=== PATIENT | female | born 1960 | race Caucasian/White ===

== ENCOUNTER → 2018-03-07 07:30 | Outpatient (RCR) | payer BC, SELFPAY ==
--- NOTE | 2016-12-11 14:21 | PTTR_ITS ---
DATE: 12/11/16 OBJECTIVE: The pt was casted for accommodative type orthotics. Will contact the pt when the devices arrive. Direct treatment time: Total treatment time: DLW/fw
--- NOTE | 2017-06-20 14:37 | PTIDS_ITS ---
DATE: 06/20/17 REFERRING PROVIDER: Amber Spears MD DIAGNOSIS: L hip pain Patient did not return for a follow up appointment(s). Patient called to cancel remaining appointment(s). Reason: Return to physician recommended. ___x__ Patient had achieved an improvement in condition up to their prior level of function. Patient was instructed in a customized home exercise program to continue independently at home. The patient was given the option to call and schedule an appointment any time within a 3-week period if they experience a return of symptoms. Patient did not schedule follow up within this time frame. COMMENTS: ___x__ Discharge from PT at this time. ___[]__ Medicare: Unable to assign G-Codes due to the lack of a formal follow up visit. Patient did not schedule further visits after their last attended appointment and therefore a final assessment could not be performed.
== END ==
LOC: PT 11-10 07:30
PROVIDERS: Referring Provider Family Medicine; Visit Provider Family Medicine
DX: R69 Illness, unspecified (principal)

== ENCOUNTER 2018-11-10 09:39 | Outpatient (REF) | payer BC, SELFPAY ==
--- NOTE | 2018-11-10 09:00 | PAPFT_PTH ---
PATIENT: Laurie Anne LOC: [facility] U#:[id number] AGE/SX: 57/F ROOM: RE11/10/[address]: BLANE Velazquez : 1960 BED: DIS: 11/10/2018 SPEC #: [id number] RECD: 11/10/18 12:52 STATUS: RAJIV REMilady #: [id number] BUFFY: 11/10/18 09:[address]: Margaret Bashir DEPT: [facility] Cytology RECD BY: Amalia Simms ENTERED: 11/10/18 12:52 SP TYPE: PAPFT OTHR DR: Tita Cunha Tissues: 1 - CX/ENDOCX FOR PAP SMEARS Procedures: PAP THIN PREP/UVM Screening HPV DNA PROBE Comments: [id number]
== END 2018-11-10 09:59 ==
LOC: LBN 09:39
PROVIDERS: Visit Provider Nurse Practitioner Family
DX: Z12.4 Encounter for screening for malignant neoplasm of cervix (principal); Z11.51 Encounter for screening for human papillomavirus (HPV)
CPT/HCPCS: 88142; 87624

== ENCOUNTER 2018-11-17 00:19 | Outpatient (CLI) | payer BC, SELFPAY ==
--- NOTE | 2018-11-17 10:30 | DI.MAMMO_ITS ---
SYMPTOM/DIAGNOSIS: SCREENING MAMMOGRAMS: Mammograms were interpreted according to the usual protocol including computer analysis with CAD system, tomosynthesis and C view imaging. Comparison is made with exams from [id number]. The breasts are composed of fatty density tissue, breast density, Category A. No suspicious masses or suspicious microcalcifications are seen. There has been no significant change. IMPRESSION: Category 1, negative mammogram. Yearly screening mammography is recommended. [facility] ASSESSMENT OF FINDINGS: Negative. Category 1. Patient will receive a letter notifying them of these results. BI-RAD category A. The breasts are almost entirely fatty.
== END 2018-11-17 00:39 ==
PROVIDERS: Visit Provider Nurse Practitioner Family
DX: Z12.31 Encounter for screening mammogram for malignant neoplasm of breast (principal)
CPT/HCPCS: 77063; 77067

== ENCOUNTER 2020-01-21 01:29 | Outpatient (CLI) | payer BC, SELFPAY ==
--- NOTE | 2020-01-21 07:30 | DI.MAMMO_ITS ---
EXAM: MAMMO SCREENING CLINICAL HISTORY: screening,Z12.39 TECHNIQUE: Mammograms were interpreted according to the usual protocol including computer analysis w [employer] CAD system, tomosynthesis and C-view imaging. COMPARISON: FINDINGS: The breasts are of moderate density with fairly symmetrical distribution of fibroglandular tissue. N o dominant mass or clumped microcalcification is identified in either breast. The current examinatio n is compared with previous examinations including November 2018 and there is an area of focal asymmetric density projected in the central portion of the left breast on MLO view only which is more prominent than on prior examinations. Possibility of a new mass is not excluded, additional evaluation with sp ot compression views of the left breast including MLO spot compression view recommended. No other significant change seen. IMPRESSION: Additional mammographic views of the left breast requested as described above. Breast ultrasound may be indicated as well depending on the results of the additional mammographic views. BI-RADS Category 0 - Assessment Incomplete: Need additional imaging evaluation Breast Density - Category B - Scattered areas of fibroglandular density
== END 2020-01-21 01:49 ==
PROVIDERS: Visit Provider Nurse Practitioner Family
DX: Z12.31 Encounter for screening mammogram for malignant neoplasm of breast (principal); R92.8 Other abnormal and inconclusive findings on diagnostic imaging of breast
CPT/HCPCS: 77063; 77067

== ENCOUNTER 2020-01-27 02:41 | Outpatient (CLI) | payer BC, SELFPAY ==
--- NOTE | 2020-01-27 | DI.US_ITS ---
EXAM: MG MAMMO SCREEN CALL BACK UNI and U/S breast LT limited CLINICAL HISTORY: F/U MAMMO, ? PROMINENCE OF ASYMMETRIC DENSITY., ? NEW MASS. TECHNIQUE: Craniocaudal and mediolateral oblique Full Field Digital Mammography views of the left br east with Computer Aided Diagnosis followed by Tomosynthesis and left breast ultrasound. COMPARISON: Priors available for comparison. FINDINGS: Mammography/Tomosynthesis: Masses/Architectural Distortion: The asymmetric density does not persist on additional views. Microcalcifictions: No suspicious pleomorphic-type are seen. Skin Thickening/Nipple Retraction: None. Left breast US: Echotexture: Normal appearance of the glandular tissue. Shadowing: No suspicious foci. Cyst: None. Solid lesions: None seen. Ductal dilation: None. IMPRESSION: 1. No evidence of malignancy is noted. 2. A follow-up examination in 6 months is recommended for re-evaluation. 3. The findings were discussed with the patient on the date of the examination. BI-RADS Cat 3 - 6 month - Probably Benign Finding: Recommend follow-up mammography in 6 months Breast Density - Category B - Scattered areas of fibroglandular density A negative radiographic report should not delay biopsy if a dominant or clinically suspicious mass is present. Up to ten percent of cancers are not identified on mammography. A negative report may reinforce clinical impression. Adenosis and dense breasts may obscure an underlying neoplasm. False positive reports average 6 to 10%. Patient will receive a letter notifying them of these results.
== END 2020-01-27 03:01 ==
PROVIDERS: Visit Provider Nurse Practitioner Family
DX: Z12.39 Encounter for other screening for malignant neoplasm of breast (principal); R92.8 Other abnormal and inconclusive findings on diagnostic imaging of breast
CPT/HCPCS: 76642; 77063; 77067

== ENCOUNTER 2020-08-02 02:14 | Outpatient (CLI) | payer BC, SELFPAY ==
--- NOTE | 2020-08-02 06:45 | DI.MAMMO_ITS ---
EXAM: MAMMO DIAGNOSTIC UNI CLINICAL HISTORY: 6 mo f/u L Mammo - f/u to abnormal,r92.8 TECHNIQUE: Mammograms were interpreted according to the usual protocol including computer analysis w [employer] CAD system, tomosynthesis and C-view imaging. COMPARISON: MG MAMMO SCREEN CALL BACK UNI from 01/27/2020 US US BREAST LT LIMITED from 01/27/2020 FINDINGS: The breasts are composed of scattered fibroglandular densities, Breast Density category B. No suspicious masses or suspicious microcalcifications are seen. No skin thickening or abnormal axillary lymph nodes are seen. The previously questioned asymmetric density is not seen on today's exam. IMPRESSION: BI-RADS Category 1, Negative mammogram Yearly screening mammography is recommended. Breast Density - Category B, scattered fibroglandular densities. A negative radiographic report should not delay biopsy if a dominant or clinically suspicious mass is present. Up to ten percent of cancers are not identified on mammography. A negative report may reinforce clinical impression. Adenosis and dense breasts may obscure an underlying neoplasm. False positive reports average 6 to 10%. Patient will receive a letter notifying them of these results.
== END 2020-08-02 02:34 ==
PROVIDERS: Visit Provider Nurse Practitioner Family
DX: R92.8 Other abnormal and inconclusive findings on diagnostic imaging of breast (principal)
CPT/HCPCS: 77061; 77065; G0279

== ENCOUNTER 2020-12-05 08:53 | Emergency (ER) | payer BC, SELFPAY ==
[2020-12-05 08:56] VITALS: BP 119/55; PULSE 70; TEMP 36.5; O2SAT 97
--- NOTE | 2020-12-05 08:57 | W.ED.GENAD ---
Discharge Plan Disposition Patient Disposition: HOME Condition: Stable Discharge Details Clinical Impression: Oral candidiasis Primary Care Provider: Tita Cunha ED Provider: Leigh Blair Home Meds and New Rx's Prescriptions: New nystatin 100,000 unit/mL suspension 5 ml PO QID 10 Days Qty: 200 RF: 0 Discharge Instructions Instructions: Oral Candidiasis (ED) Additional Instructions: You appear to have a fungal infection in your throat. Take the nystatin as directed. Alternate tylenol and motrin as needed and directed for pain. Call your primary care doctor's office tomorrow to schedule follow-up appointment for reevaluation in the next week. If your symptoms do not improve or worsen, steroids and/or antibiotics may be indicated. Return immediately to the emergency department if you develop any worsening or new concerning symptoms. Discharge Data Discharge Date/Time-TO BE ENTERED AT DEPARTURE: 12/05/20 09:56 Discharge Physician: Leigh Blair Medical Decision Making 60-year-old female presents with left-sided sore throat and left ear pain for the past 6 days. Denies fever, neck pain. She is afebrile and appears nontoxic. Left side of posterior oropharynx appears erythematous, edematous with white patches along with white patches to left side of tongue. No exudates or peritonsillar abscess. Left TM mildly dull with minimal yellowing and erythema. No signs of otitis externa. Suspect most likely oral candidiasis, although unusual only on left side of throat. Suspect this is causing the left ear findings and do not suspect a primary otitis media. Rapid strep negative. Does not appear consistent with strep pharyngitis or mononucleosis. She denies any recent oral steroids, antibiotics and no other risk for immunocompromise state. [facility] is closed today for the holiday. A prescription for nystatin sent to [facility] in [place]. Patient advised to follow-up with her primary care doctor this week for reevaluation. We will hold on oral steroids at this time for risk of worsening fungal infection. Usual and customary return precautions given prior to discharge. Medical Records Medical records reviewed: Yes I reviewed the patient's medical records. HPI General Mode of arrival: ambulatory. Date/Time Provider Initiated Documentation: 12/05/20 08:53. Limitations to Documentation: no limitations. Information obtained by: patient. HPI Narrative: Patient is a 60-year-old female presents to the ED with a complaint of a metallic taste in her mouth with left-sided sore throat and left ear pain for the past 6 days. Patient states her symptoms started with the metallic taste and then progressed to pain in the left side of her throat and neck with swallowing that radiates to her left ear. She states she saw her primary care doctor several days ago for this and was told that her eustachian tubes were plugged and was advised to gargle with salt water but she denies any improvement with this. She states she has been able to eat and drink but with irritation with swallowing. She denies any fever, cough, shortness of breath, headache or neck pain. She denies any recent antibiotic or steroid use. Related Data Home Medications Medication Instructions Recorded Confirmed nystatin 5 ml PO QID 10 Days #200 ml 12/05/20 Previous Rx's Medication Instructions Recorded nystatin 5 ml PO QID 10 Days #200 ml 12/05/20 Allergies Allergy/AdvReac Type Severity Reaction Status Date / Time No Known Allergies Allergy Verified 12/05/20 09:03 Review of Systems All systems reviewed & are unremarkable except as noted in HPI and below Constitutional Constitutional: Reports as per HPI, Denies chills and Denies fever(s) Eyes Eyes: Denies blurry vision ENT Ears, Nose, Mouth, and Throat: Denies dizziness, Reports otalgia, Reports sore throat and Denies throat swelling Cardiovascular Cardiovascular: Denies chest pain and Denies dyspnea Respiratory Respiratory: Denies cough and Denies dyspnea Gastrointestinal Gastrointestinal: Denies abdominal pain, Denies diarrhea and Denies vomiting Genitourinary Genitourinary: Denies hematuria and Denies dysuria Musculoskeletal Musculoskeletal: Denies back pain and Denies numbness Integumentary/Breasts Skin/Breast: Denies lesions and Denies rash Neurologic Neurologic: Denies dizziness, Denies localized weakness and Denies numbness Allergic/Immunologic Allergic/Immunologic: Denies throat swelling [facility] Medical History (Updated 12/05/20 @ 09:40 by Leigh Blair DO) Obesity Surgical History (Updated 04/23/18 @ 14:35 by [employer] DC) section Colonoscopy - MAC (02/18/17) Family History Father Peripheral neuropathy Sister Peripheral neuropathy Social History (Updated 11/10/18 @ 08:44 by Margaret Bashir NP) Smoking/Tobacco Use Status: Never Smoking risk assessment performed?: Yes Alcohol Intake: never Drug use: Never Substance use type: does not use current occupation: Periodontal Assistant Do you feel safe at home: Yes Do you feel safe in your relationship?: Yes History History 3 Para 2 Hx # Term Pregnancies Multiple births Hx # Pregnancies Ectopic pregnancies AB induced Hx Number of Living Children AB spontaneous Exam Const General: cooperative, healthy appearing and no acute distress HENMT Head: normal to inspection Ears: hearing grossly normal bilaterally, external ears normal, EAC's normal, mastoids normal bilaterally and TM abnormal dull on the left and with fluid behind the TM on the left (minimal yellowish color) General nose exam: external nose normal Face and sinus: normal facial exam Mouth: lip normal, moist mucous membranes, no drooling, tongue abnormal with lesion noted patch (white patches noted to L posterior and lateral tongue) and no trismus Throat: uvula midline, no peritonsillar masses and posterior oropharynx abnormal (white patches, erythema, edema noted to L side) Eyes General: appearance normal, both eyes and all related structures EOM: EOM intact bilaterally Neck Neck: normal visual inspection and No submandibular swelling Lymphatic: no lymphadenopathy noted Resp Effort & Inspection: normal respiratory effort and able to speak in complete sentences Cardio Rate: regular rate Skin General skin exam: no rashes or lesions noted Neuro General: patient alert, patient awake and patient oriented x3 Cognition: normal cognition Speech: speech normal Motor: muscle tone normal throughout Sensory Exam: no sensory deficits noted Extrem General: normal to inspection and full ROM Psych Appearance: grossly normal Mental Status: mental status grossly normal Speech and Movement: speech and movement normal Affect: normal affect
== END 2020-12-05 09:56 | disposition home or self-care (01) ==
PROVIDERS: Emergency Provider Physician Assistant
DX: B37.0 Candidal stomatitis (principal); H92.02 Otalgia, left ear
CPT/HCPCS: 87880; 99283; 87081

== ENCOUNTER 2021-01-24 01:49 | Outpatient (CLI) | payer BC, SELFPAY ==
--- NOTE | 2021-01-24 06:45 | DI.MAMMO_ITS ---
Exam(s) MAMMO SCREENING EXAM: MAMMO SCREENING CLINICAL HISTORY: screening,z12.39 TECHNIQUE: Mammograms were interpreted according to the usual protocol including computer analysis w [email or web address] CAD system, tomosynthesis and C-view imaging. COMPARISON: 2011 through 2020 FINDINGS: The breasts are composed of scattered fibroglandular densities, Breast Density category B. No suspicious masses or suspicious microcalcifications are seen. No skin thickening or abnormal axillary lymph nodes are seen. There has been no significant change from prior exams. IMPRESSION: BI-RADS Category 1, Negative mammogram Yearly screening mammography is recommended. Breast Density - Category B, scattered fibroglandular densities. A negative radiographic report should not delay biopsy if a dominant or clinically suspicious mass is present. Up to ten percent of cancers are not identified on mammography. A negative report may reinforce clinical impression. Adenosis and dense breasts may obscure an underlying neoplasm. False positive reports average 6 to 10%. Patient will receive a letter notifying them of these results.
== END 2021-01-24 02:09 ==
PROVIDERS: Visit Provider Nurse Practitioner Family
DX: Z12.31 Encounter for screening mammogram for malignant neoplasm of breast (principal); R92.8 Other abnormal and inconclusive findings on diagnostic imaging of breast
CPT/HCPCS: 77063; 77067

== ENCOUNTER 2022-01-22 15:41 | Outpatient (REF) | payer BC, SELFPAY ==
--- NOTE | 2022-01-22 15:30 | PAPFT_PTH ---
PATIENT: Laurie Anne LOC: [facility] U#:[id number] AGE/SX: 61/F ROOM: RE01/22/[address]: BLANE Velazquez : 1960 BED: DIS: 01/22/2022 SPEC #: [id number] RECD: 01/22/22 18:53 STATUS: RAJIV REQ #: [id number] BUFFY: 01/22/22 15:[address]: Margaret Bashir DEPT: [facility] Cytology RECD BY: Amalia Simms ENTERED: 01/22/22 18:53 SP TYPE: PAPFT OTHR DR: Amber Spears Tissues: 1 - CX/ENDOCX FOR PAP SMEARS Procedures: PAP THIN PREP/UVM Screening HPV DNA PROBE Comments: [id number]
== END 2022-01-22 15:42 | disposition home or self-care (01) ==
LOC: LBN 15:41
PROVIDERS: PCP Family Medicine; Visit Provider Nurse Practitioner Family
DX: Z12.4 Encounter for screening for malignant neoplasm of cervix (principal); Z11.51 Encounter for screening for human papillomavirus (HPV)
CPT/HCPCS: 88142; 87624

== ENCOUNTER → 2022-02-13 02:38 | Outpatient (CLI) | payer BC, SELFPAY ==
--- NOTE | 2022-02-13 08:23 | DI.MAMMO_ITS ---
Exam(s) MAMMO SCREENING EXAM: MAMMO SCREENING CLINICAL HISTORY: screening TECHNIQUE: Mammograms were interpreted according to the usual protocol including computer analysis w [employer] CAD system, tomosynthesis and C-view imaging. COMPARISON: 2012 through 2020 FINDINGS: The breasts are composed of scattered fibroglandular densities, Breast Density category B. No suspicious masses or suspicious microcalcifications are seen. No skin thickening or abnormal axillary lymph nodes are seen. There has been no significant change from prior exams. IMPRESSION: BI-RADS Category 1, Negative mammogram Yearly screening mammography is recommended. Breast Density - Category B, scattered fibroglandular densities. A negative radiographic report should not delay biopsy if a dominant or clinically suspicious mass is present. Up to ten percent of cancers are not identified on mammography. A negative report may reinforce clinical impression. Adenosis and dense breasts may obscure an underlying neoplasm. False positive reports average 6 to 10%. Patient will receive a letter notifying them of these results.
== END ==
PROVIDERS: PCP Family Medicine; Visit Provider Nurse Practitioner Family
DX: Z12.31 Encounter for screening mammogram for malignant neoplasm of breast (principal)
CPT/HCPCS: 77063; 77067

== ENCOUNTER 2022-09-14 02:15 | Outpatient (CLI) | payer BC, SELFPAY ==
[2022-09-14 10:01] LABS: TSH (W/Ref FT4) 1.97 uIU/mL (0.36-3.74); Vitamin B12 520 pg/mL (193-986)
[2022-09-17 13:23] LABS: Albumin 62.4 % (55.8-66.1); Albumin g/dL 4.1 g/dL (3.6-5.2); Total Protein 6.5 g/dL (6.3-8.2)
== END 2022-09-14 02:16 | disposition home or self-care (01) ==
PROVIDERS: PCP Family Medicine; Visit Provider Psychiatry & Neurology Neurology
DX: G62.9 Polyneuropathy, unspecified (principal); R73.9 Hyperglycemia, unspecified
CPT/HCPCS: 36415; 82607; 83036; 84165; 84443

== ENCOUNTER 2024-04-14 10:53 | Outpatient (REF) | payer BC, SELFPAY ==
--- NOTE | 2024-04-14 10:00 | PAPFT_PTH ---
PATIENT: Laurie Anne LOC: [facility] U#:[id number] AGE/SX: 63/F ROOM: RE04/14/[address]: Alma Dennison MD : 1960 BED: DIS: 04/14/2024 SPEC #: [id number] RECD: 04/14/24 12:56 STATUS: RAJIV REQ #: [id number] BUFFY: 04/14/24 10:[address]: Alma Dennison DEPT: [facility] Cytology RECD BY: Amalia Simms ENTERED: 04/14/24 12:56 SP TYPE: PAPFT OTHR DR: Amber Spears Tissues: 1 - CX/ENDOCX FOR PAP SMEARS Procedures: PAP THIN PREP/UVM Screening HPV DNA PROBE Comments: [id number] (HPV 16 & 18/45)
== END 2024-04-14 10:54 | disposition home or self-care (01) ==
LOC: LBN 10:53
PROVIDERS: PCP Family Medicine; Visit Provider Obstetrics & Gynecology
DX: Z11.51 Encounter for screening for human papillomavirus (HPV) (principal); Z01.419 Encounter for gynecological examination (general) (routine) without abnormal findings
CPT/HCPCS: 88142; 87624

== ENCOUNTER 2024-04-16 01:10 | Outpatient (CLI) | payer BC, SELFPAY ==
--- NOTE | 2024-04-16 08:00 | DI.MAMMO_ITS ---
Exam(s) MAMMO SCREENING EXAM: MAMMO SCREENING CLINICAL HISTORY: screening. TECHNIQUE: Bilateral full field digital CC and MLO mammographic images were obtained with 3D tomosyn thesis and utilizing computer aided detection (CAD). COMPARISON: Prior mammograms were reviewed. FINDINGS: There has been no significant change in the appearance and distribution of the fibroglandular tissue. Benign-appearing lymph node left breast is unchanged from prior mammograms. There are no new spiculated masses nor malignant appearing microcalcification groups. There is no significant architectural distortion nor skin thickening-retraction. IMPRESSION: No radiographic evidence of malignancy. BI-RADS Category 1 - Negative Breast Density - Category B - Scattered areas of fibroglandular density Breast density Category C or D implies that the patient has dense breast tissue. Dense breast tissue can make it harder to find cancer on a mammogram. Dense breast tissue is also associated with an incr eased risk of breast cancer. This information about the result of the mammogram report was provided to the patient to raise their awareness. Use this report when you speak with the patient about their risks for breast cancer, which includes their family history. At that time, you may recommend additional screening tests (Ultrasoun d or MRI) as these tests may add significant information. A negative radiographic report should not delay biopsy if a dominant or clinically suspicious mass is present. Up to ten percent of cancers are not identified on mammography. A negative report may reinforce clinical impression. Adenosis and dense breasts may obscure an underlying neoplasm. False positive reports average 6 to 10%. Patient will receive a letter notifying them of these results.
== END 2024-04-16 01:30 ==
LOC: DI 01:10
PROVIDERS: PCP Family Medicine; Visit Provider Obstetrics & Gynecology
DX: Z12.31 Encounter for screening mammogram for malignant neoplasm of breast (principal)
CPT/HCPCS: 77063; 77067

== ENCOUNTER → 2025-06-17 01:08 | Outpatient (CLI) | payer OTHER, SELFPAY ==
--- NOTE | 2025-06-17 | DI.MAMMO_ITS ---
Exam(s) MAMMO SCREENING EXAM: MAMMO SCREENING CLINICAL HISTORY: SCREENING, Z12.31 TECHNIQUE: Mammograms were interpreted according to the usual protocol including computer analysis with CAD system, tomosynthesis and C-view imaging. COMPARISON: 2015 through 2023 FINDINGS: The breasts are composed of scattered fibroglandular densities, Breast Density category B. No suspicious masses or suspicious microcalcifications are seen. No skin thickening or abnormal axillary lymph nodes are seen. There has been no significant change from prior exams. IMPRESSION: BI-RADS Category 1, Negative mammogram Yearly screening mammography is recommended. Breast Density - Category B - There are scattered areas of fibroglandular density. Breast density Category C or D implies that the patient has dense breast tissue. Dense breast tissue can make it harder to find cancer on a mammogram. Dense breast tissue is also associated with an increased risk of breast cancer. This information about the result of the mammogram report was provided to the patient to raise their awareness. Use this report when you speak with the patient about their risks for breast cancer, which includes their family history. At that time, you may recommend additional screening tests (Ultrasound or MRI) as these tests may add significant information. A negative radiographic report should not delay biopsy if a dominant or clinically suspicious mass is present. Up to ten percent of cancers are not identified on mammography. A negative report may reinforce clinical impression. Adenosis and dense breasts may obscure an underlying neoplasm. False positive reports average 6 to 10%. Patient will receive a letter notifying them of these results.
== END ==
PROVIDERS: PCP Family Medicine; Visit Provider Family Medicine
DX: Z12.31 Encounter for screening mammogram for malignant neoplasm of breast (principal); R92.323 Mammographic fibroglandular density, bilateral breasts
CPT/HCPCS: 77063; 77067